=== PATIENT | female | born 1970 | race American Indian/Alaskan Native ===

== ENCOUNTER 2016-10-31 12:52 | Outpatient (CLI) | payer BC ==
--- NOTE | 2016-10-31 15:25 | Mammography Report ---
Bilateral mammogram: Compared to 02/19/15. CAD study utilized. Findings: Predominance adipose tissue bilaterally. Benign density outer anterior left breast. Neodensity upper mid left breast. No microcalcification. Impression: New density upper mid left breast. Recommend spot mag and if necessary sonographic examination advised. BI-RADS CATEGORY: 0 = Needs additional imaging evaluation ACR BI-RADS MAMMOGRAPHIC CODES: 0 = Needs additional imaging evaluation; 1 = Negative; 2 = Benign; 3 = Probably benign; 4 = Suspicious; 5 = Malignant; 6 = Known biopsy-proven malignancy COMMENT: 1. Dense breast tissue, i.e., adenosis, fibrocystic changes, etc., may obscure an underlying neoplasm. 2. Approximately 10% of cancers are not detected with mammography. 3. A negative mammography report should not delay biopsy if a clinically suspicious mass is present. COMMENT: Patient follow-up letters are generated in [employer].
== END 2016-10-31 12:53 | disposition home or self-care (01) ==
LOC: MAMMO 12:52
PROVIDERS: ATTEND Family Medicine Adult Medicine
DX: Z12.31 Encounter for screening mammogram for malignant neoplasm of breast (principal)
CPT/HCPCS: 77067; G0202

== ENCOUNTER 2016-11-07 08:45 | Outpatient (CLI) | payer BC ==
--- NOTE | 2016-11-10 09:21 | Mammography Report ---
LEFT DIGITAL DIAGNOSTIC MAMMOGRAM : 11/07/16 08:45:00 CLINICAL: Recalled for asymmetry. COMPARISON:10/31/16 screening FINDINGS: ML and spot compression MLO and CC views were performed. Satisfactory effacement of the previously described asymmetry on the MLO spot view. A benign outer intraparenchymal lymph node is identified. The lateral view is negative. IMPRESSION: Negative Mammogram. BI-RADS CATEGORY: 2 - - Benign RECOMMENDATION: Routine mammographic screening in one year. ACR BI-RADS MAMMOGRAPHIC CODES: 0 = Needs additional imaging evaluation; 1 = Negative; 2 = Benign; 3 = Probably benign; 4 = Suspicious; 5 = Malignant; 6 = Known biopsy-proven malignancy COMMENT: 1. Dense breast tissue, i.e., adenosis, fibrocystic changes, etc., may obscure an underlying neoplasm. 2. Approximately 10% of cancers are not detected with mammography. 3. A negative mammography report should not delay biopsy if a clinically suspicious mass is present. COMMENT: Patient follow-up letters are generated via our [employer] application.
== END 2016-11-07 08:46 | disposition home or self-care (01) ==
LOC: MAMMO 08:45
PROVIDERS: ATTEND Family Medicine Adult Medicine
DX: R92.2 Inconclusive mammogram (principal)
CPT/HCPCS: G0206-LT

== ENCOUNTER 2017-11-02 09:47 | Outpatient (CLI) | payer BC ==
--- NOTE | 2017-11-03 11:04 | Mammography Report ---
BILATERAL DIGITAL SCREENING MAMMOGRAM with CAD: 11/02/17 09:47:00 CLINICAL: Routine screening. COMPARISON:10/31/16 FINDINGS: The breasts are almost entirely fatty.Stable benign left outer intramammary lymph node. No mass, architectural distortion or suspicious calcifications. IMPRESSION: No mammographic evidence of malignancy. BI-RADS CATEGORY: 2 - - Benign RECOMMENDATION: Routine mammographic screening in one year. COMMENT: Patient follow-up letters are generated by our [employer] application.
== END 2017-11-02 09:48 | disposition home or self-care (01) ==
LOC: MAMMO 09:47
PROVIDERS: ATTEND Physician Assistant
DX: Z12.31 Encounter for screening mammogram for malignant neoplasm of breast (principal)
CPT/HCPCS: 77067